=== PATIENT | male | born 1940 | race Caucasian/White ===

== ENCOUNTER → 2023-10-29 | Outpatient (CLI) | payer MEDICARE, OTHER ==
[~2023-10-29] MED LIST: CATHETER FLUSH 10 ML SYR IVP PRN
--- NOTE | 2023-10-30 09:26 | Diagnostic Imaging Report ---
INDICATION: Initial staging colon carcinoma. TECHNIQUE: The serum blood glucose level at the time of injection was 79 mg/dL. The patient was administered 9.0 mCi of F-18 FDG intravenously. PET imaging was performed from the top of the skull to the mid thighs. Noncontrast CT was also performed for attenuation correction and anatomic correlation. COMPARISON: No prior imaging is available for comparison. FINDINGS: There is symmetric activity throughout the brain. The soft tissues of the neck are unremarkable. No mediastinal or hilar hypermetabolism is identified. No pulmonary parenchymal hypermetabolism is detected. There does appear to be a hypermetabolic mass in the right lobe of the liver with an SUV max of 9.2. No other hypermetabolic foci in the abdomen or pelvis are identified. There is physiologic activity throughout the GI and tracts. IMPRESSION: Hypermetabolic mass in the right lobe of the liver, concerning for a metastatic lesion. No other hypermetabolic foci are identified. Dictated by: Dictated on workstation # [id number]
== END ==
LOC: RAD 09:39 → EDBD 10:15
PROVIDERS: ATTEND Internal Medicine Hematology & Oncology
DX: C19 Malignant neoplasm of rectosigmoid junction (principal); R16.0 Hepatomegaly, not elsewhere classified
CPT/HCPCS: 78815; 82947; A9552